=== PATIENT | female | born 1990 | race African-American/Black ===

== ENCOUNTER 2016-09-14 16:07 | Emergency (ER) | payer OTHER ==
[~2016-09-14] VITALS: Ht 165.1 cm; Wt 56.7 kg
[~2016-09-14 16:07] MED LIST: ALBUTEROL SULF8.5 GM INH; FLAGYL500 MG ORAL; IBUPROFEN600 MG ORAL; KEFLEX500 MG ORAL; METRONIDAZOLE250 MG ORAL; METRONIDAZOLE500 MG ORAL; NAPROSYN500 M1 ORAL; NKM; NORCO 5-325 TA1 EACH ORAL; PHENAZOPYRIDIN200 MG ORAL; PROMETHAZINE-D118 ML ORAL; VIBRAMYCIN100 MG ORAL; ZOFRAN ODT4 MG ORAL; ZOFRAN4 MG ORAL
[2016-09-14 16:32] VITALS: BP 120/62
[2016-09-14 18:13] LABS: APPEARANCE,URINE CLEAR; KETONES,URINE NEGATIVE (NEGATIVE); LEUKOCYTE ESTERASE ,URINE NEGATIVE (NEGATIVE); NITRITE,URINE NEGATIVE (NEGATIVE); PH,URINE 7 (4.5-8.0); PROTEIN,URINE NEGATIVE (NEGATIVE); UROBILINOGEN,URINE NORMAL MG/DL (0.0-1.0)
--- NOTE | 2016-09-14 18:40 | Emergency Room Report ---
History of Present Illness General Chief Complaint: Abdominal Pain Source: Patient Present Illness HPI 26-year-old female presents to the emergency department complaining of sharp lower abdominal midline pain described as cramping in nature 03/19 in severity onset was during menstrual cycle. Patient states the pain continues although her cycle stopped yesterday. Patient denies fevers chills constipation diarrhea or vomiting patient reports nausea. Patient denies abnormal vaginal discharge or history of STDs. Patient denies dysuria, hematuria or frequency. She does report unprotected intercourse and is worried she may be , due to nausea. Patient denies abdominal tenderness. Denies CP, Palpitations, LOC, AMS, dizziness, Changes in Vision, Sensation, paresthesias, or a sudden severe headache. Allergies: Coded Allergies: No Known Allergies (Unverified , 11/10/15) Patient History Past Medical History: see triage record Past Surgical History: none Pertinent Family History: none Last Menstrual Period: 09/09/16 Now: No Immunizations: UTD Reviewed Nursing Documentation: PMH: Agreed, PSxH: Agreed Nursing Documentation-PMH Hx Asthma: Yes Review of Systems All Other Systems: negative except mentioned in HPI Physical Exam Vital Signs Date Time Temp Pulse Resp B/P Pulse Ox O2 Delivery O2 Flow Rate FiO2 09/14/16 16:24 98.1 82 15 112/68 98 Room Air Sp02 EP Interpretation: reviewed, normal General Appearance: no apparent distress, alert, GCS 15, non-toxic Head: normocephalic, atraumatic Eyes: bilateral eye PERRL, bilateral eye normal inspection ENT: hearing grossly normal, normal pharynx, no angioedema, normal voice Neck: full range of motion, supple/symm/no masses Respiratory: chest non-tender, lungs clear, normal breath sounds, speaking full sentences Cardiovascular #1: regular rate, rhythm, no edema Gastrointestinal: normal bowel sounds, non tender, soft, no mass, no organomegaly, no bruit, non-distended, no guarding, no hernia, no pulsatile mass , no rebound, other - Mild tenderness palpated in the low abdomen location over lower uterus. Negative Lockwood signs, Negative MacBurney's sign, Negative Rosvigns Sign, Negative Psoas, No Peritoneal signs. Rectal: deferred Genitourinary: normal inspection, no CVA tenderness, other - Mild midline uterine pain to palpation no adnexal pain. Musculoskeletal: back normal, gait/station normal, normal range of motion, non- tender, no calf tenderness Neurologic: alert, oriented x3, responsive, motor strength/tone normal, sensory intact, speech normal Psychiatric: judgement/insight normal, memory normal, mood/affect normal, no suicidal/homicidal ideation Skin: normal color, no rash, warm/dry, well hydrated Lymphatic: no adenopathy Medical Decision Making PA Attestation Dr. lo is my supervising Physician whom patient management has been discussed with. Diagnostic Impression: Primary Impression: Uterine cramping ER Course Pt. presents to the ED c/o of continued uterine cramps despite cycle ending yesterday. Ddx considered but are not limited to Diverticulitis, acute appy, diarrhea,UC, PUD, GE, pancreatitis, gallstone, ovarian torsion, ectopic , PID tubo-ovarian abscess, Vital signs: are WNL, pt. is afebrile H&PE are most consistent with ORDERS: -UA: WNL no evidence of infection -URINE HCG:Negative ED INTERVENTIONS: None required at this time -The patient to follow up with OUTPATIENT SCHEDULER if symptoms continue. Discussed symptoms that would indicate prompt return to the emergency department. She verbalizes her understanding and agreement with post treatment plan DISCHARGE: At this time pt. is stable for d/c to home. Will provide printed patient care instructions, and any necessary prescriptions. Care plan and follow up instructions have been discussed with the patient prior to discharge. Labs Test 09/14/16 17:33 Urine Color Pale yellow Urine Appearance Clear Urine pH 7 (4.5-8.0) Urine Specific [place] 1.010 (1.005-1.035) Urine Protein Negative (NEGATIVE) Urine Glucose (UA) Negative (NEGATIVE) Urine Ketones Negative (NEGATIVE) Urine Occult Blood Negative (NEGATIVE) Urine Nitrite Negative (NEGATIVE) Urine Bilirubin Negative (NEGATIVE) Urine Urobilinogen Normal MG/DL (0.0-1.0) Urine Leukocyte Esterase Negative (NEGATIVE) Urine HCG, Qualitative Negative Last Vital Signs Date Time Temp Pulse Resp B/P Pulse Ox O2 Delivery O2 Flow Rate FiO2 09/14/16 16:32 98.0 70 17 120/62 98 Room Air Disposition: HOME, SELF-CARE Condition: Stable Scripts Ibuprofen* (MOTRIN*) 600 Mg Tablet 600 MG ORAL THREE TIMES A DAY, #30 TAB 0 Refills Prov: Ligia Mathews 09/14/16 Patient Instructions: Muscle Cramps and Spasms, [id number] Additional Instructions: Take medications as directed. Follow up with PCP/ OBGYN in 3-5 days Return sooner to ED if new symptoms occur, or current symptoms become worse. Ligia Mathews Sep 14, 2016 18:40
[2016-09-14] MEDS ORDERED: IBUPROFEN600 MG ORAL (18:41)
[2016-09-14 18:52] VITALS: BP 124/68
[2016-11-22] MEDS ORDERED: IBUPROFEN600 MG ORAL (00:03)
== END 2016-09-14 18:52 | disposition home or self-care (01) ==
LOC: EMR 17:00
DX: R10.9 Unspecified abdominal pain (principal); N94.89 Other specified conditions associated with female genital organs and menstrual cycle
CPT/HCPCS: 81003; 81025; 99284

== ENCOUNTER 2016-09-25 19:34 | Emergency (ER) | payer OTHER ==
[~2016-09-25] VITALS: Ht 152.4 cm; Wt 54.4 kg
[2016-09-25] MEDS ORDERED: Azithromycin 250mg tab ORAL ONE (20:15)
[2016-09-25] MEDS ORDERED: Lidocaine 1% MPF 10mg/ml 5ml ONE (20:31)
[2016-09-25 20:34] LABS: APPEARANCE,URINE SLIGHTLY CLOUDY; KETONES,URINE 1+ (NEGATIVE); LEUKOCYTE ESTERASE ,URINE 1+ (NEGATIVE); NITRITE,URINE NEGATIVE (NEGATIVE); PH,URINE 5 (4.5-8.0); PROTEIN,URINE NEGATIVE (NEGATIVE); UROBILINOGEN,URINE NORMAL MG/DL (0.0-1.0)
[2016-09-25 20:42] LABS: RBC,URINE 0-2 /HPF (0 - 2)
[2016-09-25 20:43] LABS: BACTERIA,URINE FEW /HPF; SQUAMOUS EPITHELIAL CELL,UR MANY /LPF (NONE/OCC)
[2016-09-25 21:10] VITALS: BP 116/71
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
[2016-11-22] MEDS ORDERED: IBUPROFEN600 MG ORAL (00:03)
== END 2016-09-25 21:10 | disposition home or self-care (01) ==
LOC: EMR 20:20
DX: N34.2 Other urethritis (principal); J45.909 Unspecified asthma, uncomplicated
CPT/HCPCS: 81003; 81025; 96372; 99283; J0696; Q0144

== ENCOUNTER 2016-10-21 16:52 | Emergency (ER) | payer OTHER ==
[~2016-10-21] VITALS: Ht 152.4 cm; Wt 55.8 kg
[2016-10-21] MEDS ORDERED: ALBUTEROL2.5 MG/3 M INH (17:39)
[2016-10-21] MEDS ORDERED: Lidocaine 2% Visc 15ml soln ORAL ONE (18:00)
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
[2016-10-21] MEDS ORDERED: AMOXICILLIN500 MG ORAL (18:15)
[2016-10-21] MEDS ORDERED: IBUPROFEN600 MG ORAL (18:16)
[2016-10-21 18:32] VITALS: BP 99/64
[2016-11-22] MEDS ORDERED: IBUPROFEN600 MG ORAL (00:03)
== END 2016-10-21 18:34 | disposition home or self-care (01) ==
LOC: EMR 17:42
DX: S01.511A Laceration without foreign body of lip, initial encounter (principal); W51.XXXA Accidental striking against or bumped into by another person, initial encounter; Y93.41 Activity, dancing; Y92.89 Other specified places as the place of occurrence of the external cause; J45.909 Unspecified asthma, uncomplicated

== ENCOUNTER → 2016-11-21 | Emergency (ER) | payer OTHER ==
[~2016-11-21] VITALS: Ht 152.4 cm; Wt 56.7 kg
[~2016-11-21] MED LIST changes: +ALBUTEROL2.5 MG/3 M INH; +AMOXICILLIN500 MG ORAL
[2016-11-21 23:21] LABS: APPEARANCE,URINE CLEAR
[2016-11-21 23:22] LABS: KETONES,URINE NEGATIVE (NEGATIVE); LEUKOCYTE ESTERASE ,URINE 2+ (NEGATIVE); NITRITE,URINE NEGATIVE (NEGATIVE); PH,URINE 7 (4.5-8.0); PROTEIN,URINE NEGATIVE (NEGATIVE); UROBILINOGEN,URINE NORMAL MG/DL (0.0-1.0)
[2016-11-21 23:24] LABS: MEAN CORPUSCULAR HEMOGLOBIN 28.1 PG (27.0-31.0); MEAN CORPUSCULAR HGB CONC 33.8 G/DL (32.0-36.0); MEAN CORPUSCULAR VOLUME 83 FL (80-99); MEAN PLATELET VOLUME 7.1 FL (6.5-10.1); PLATELET COUNT 208 K/UL (150-450); RED BLOOD COUNT 4.46 M/UL (4.20-5.40); RED CELL DISTRIBUTION WIDTH 11.9 % (11.6-14.8); WHITE BLOOD COUNT 6.5 K/UL (4.8-10.8)
[2016-11-21 23:25] LABS: BASOPHILS % (AUTO) 1.6 % (0.0-2.0); EOSINOPHILS % (AUTO) 5.3 % (0.0-3.0); LYMPHOCYTES % (AUTO) 38.2 % (20.0-45.0); MONOCYTES % (AUTO) 8.6 % (1.0-10.0); NEUTROPHILS % (AUTO) 46.3 % (45.0-75.0)
[2016-11-21 23:40] VITALS: BP 115/80
[2016-11-21 23:43] LABS: ALANINE AMINOTRANSFERASE 11 U/L (3-33); ALBUMIN/GLOBULIN RATIO 1.1 (1.0-2.7); ANION GAP 15 (5-15); ASPARTATE AMINO TRANSFERASE 18 U/L (5-40); CALCIUM 9.1 mg/dL (8.6-10.2); CARBON DIOXIDE 23 mEQ/L (20-30); CHLORIDE 99 mEQ/L (98-107); CREATININE 0.8 mg/dL (0.5-0.9); GLOMERULAR FILTRATION RATE > 60 mL/min (>60); HEMOLYSIS 10; LIPASE 20 U/L (< 60); POTASSIUM 4.1 mEQ/L (3.4-4.9); SODIUM 137 mEQ/L (135-145); TOTAL PROTEIN 7.6 g/dL (6.6-8.7)
[2016-11-22 00:02] LABS: SQUAMOUS EPITHELIAL CELL,UR FEW /LPF (NONE/OCC)
[2016-11-22 00:10] VITALS: BP 120/83
--- NOTE | 2016-11-22 03:12 | Emergency Room Report ---
History of Present Illness General Chief Complaint: Abdominal Pain Source: Patient Present Illness HPI 26-year-old female presents ED complaining of abdominal pain x2 weeks. States she was seen at a clinic 2 weeks ago for the same presentation. Patient was told that she had a "infection" and was prescribed Flagyl. States that the discharge is persisting and she is having worsening abdominal pain. Pain is lower, 10 out of 10, sharp, nonradiating. No other aggravating relieving factors. Denies dysuria or hematuria. Denies fevers chills. Denies nausea or vomiting. Denies any other associated symptoms Allergies: Coded Allergies: No Known Allergies (Unverified , 11/10/15) Patient History Past Medical History: asthma Past Surgical History: none Pertinent Family History: none Social History: Denies: alcohol use, drug use, smoking Last Menstrual Period: 11/07/16 Now: No Immunizations: UTD Reviewed Nursing Documentation: PMH: Agreed, PSxH: Agreed Nursing Documentation-PMH Hx Asthma: Yes Review of Systems All Other Systems: negative except mentioned in HPI Physical Exam Vital Signs Date Time Temp Pulse Resp B/P Pulse Ox O2 Delivery O2 Flow Rate FiO2 11/21/16 22:34 98.2 81 15 113/73 98 Room Air Sp02 EP Interpretation: reviewed, normal General Appearance: no apparent distress, alert, GCS 15, non-toxic Head: normocephalic, atraumatic Eyes: bilateral eye PERRL, bilateral eye normal inspection ENT: hearing grossly normal, normal pharynx, no angioedema, normal voice Neck: full range of motion, supple/symm/no masses Respiratory: chest non-tender, lungs clear, normal breath sounds, speaking full sentences Cardiovascular #1: regular rate, rhythm, no edema Cardiovascular #2: 2+ carotid (R), 2+ carotid (L), 2+ radial (R), 2+ radial (L) , 2+ dorsalis pedis (R), 2+ dorsalis pedis (L) Gastrointestinal: normal bowel sounds, non tender, soft, non-distended, no guarding, no rebound Rectal: deferred Genitourinary: normal inspection, no CVA tenderness Musculoskeletal: back normal, gait/station normal, normal range of motion, non- tender Neurologic: alert, oriented x3, responsive, motor strength/tone normal, sensory intact, speech normal Psychiatric: judgement/insight normal, memory normal, mood/affect normal, no suicidal/homicidal ideation Reflexes: 3+ bicep (R), 3+ bicep (L), 3+ tricep (R), 3+ tricep (L), 3+ knee (R) , 3+ knee (L) Skin: normal color, no rash, warm/dry, well hydrated Lymphatic: no adenopathy Medical Decision Making Diagnostic Impression: Primary Impression: Ovarian cyst Qualified Codes: N83.202 - Unspecified ovarian cyst, left side ER Course Hospital Course 26-year-old F presents to ED with abdominal pain, vaginal discharge Differential diagnosis includes-ovarian cyst, torsion, TOA, pelvic inflammatory disease Clinical course Patient placed on stretcher. After initial history and physical I ordered labs , IV fluids, pelvic US Labs - no leukocytosis, electrolytes ok, LFTs normal, UA unremarkable Pelvic US - no discharge, ruptured left ovarian cysts noted I feel this is a highly complex case requiring extensive working including EKG/ Rhythm strip, Xray/CT/US, Blood/urine lab work, repeat exams while in ED, and administration of strong opiates/narcotics for pain control, admission to hospital or close patient follow up. Diagnosis - ovarian cysts Stable and discharged to home with Rx Motrin. Followup with PMD. Return to ED if symptoms recur or worsen Labs Test 11/21/16 22:56 11/21/16 23:01 Urine Color Yellow Urine Appearance Clear Urine pH 7 (4.5-8.0) Urine Specific [place] 1.005 (1.005-1.035) Urine Protein Negative (NEGATIVE) Urine Glucose (UA) Negative (NEGATIVE) Urine Ketones Negative (NEGATIVE) Urine Occult Blood 2+ (NEGATIVE) Urine Nitrite Negative (NEGATIVE) Urine Bilirubin Negative (NEGATIVE) Urine Urobilinogen Normal MG/DL (0.0-1.0) Urine Leukocyte Esterase 2+ (NEGATIVE) Urine RBC 2-4 /HPF (0 - 2) Urine WBC 5-10 /HPF (0 - 2) Urine Squamous Epithelial Cells Few /LPF (NONE/OCC) Urine Bacteria None /HPF (NONE) Urine HCG, Qualitative Negative White Blood Count 6.5 K/UL (4.8-10.8) Red Blood Count 4.46 M/UL (4.20-5.40) Hemoglobin 12.5 G/DL (12.0-16.0) Hematocrit 37.1 % (37.0-47.0) Mean Corpuscular Volume 83 FL (80-99) Mean Corpuscular Hemoglobin 28.1 PG (27.0-31.0) Mean Corpuscular Hemoglobin Concent 33.8 G/DL (32.0-36.0) Red Cell Distribution Width 11.9 % (11.6-14.8) Platelet Count 208 K/UL (150-450) Mean Platelet Volume 7.1 FL (6.5-10.1) Neutrophils (%) (Auto) 46.3 % (45.0-75.0) Lymphocytes (%) (Auto) 38.2 % (20.0-45.0) Monocytes (%) (Auto) 8.6 % (1.0-10.0) Eosinophils (%) (Auto) 5.3 % (0.0-3.0) Basophils (%) (Auto) 1.6 % (0.0-2.0) Sodium Level 137 mEQ/L (135-145) Potassium Level 4.1 mEQ/L (3.4-4.9) Chloride Level 99 mEQ/L (98-107) Carbon Dioxide Level 23 mEQ/L (20-30) Anion Gap 15 (5-15) Blood Urea Nitrogen 8 mg/dL (7-23) Creatinine 0.8 mg/dL (0.5-0.9) Estimat Glomerular Filtration Rate > 60 mL/min (>60) Glucose Level 100 mg/dL (74-106) Calcium Level 9.1 mg/dL (8.6-10.2) Total Bilirubin 0.2 mg/dL (0.0-1.2) Aspartate Amino Transf (AST/SGOT) 18 U/L (5-40) Alanine Aminotransferase (ALT/SGPT) 11 U/L (3-33) Alkaline Phosphatase 81 U/L (35-104) Total Protein 7.6 g/dL (6.6-8.7) Albumin 4.1 g/dL (3.5-5.2) Globulin 3.5 g/dL Albumin/Globulin Ratio 1.1 (1.0-2.7) Lipase 20 U/L (< 60) CT/MRI/US Diagnostic Results CT/MRI/US Diagnostic Results : Imaging Test Ordered: Pelvis US Impression ruptured L ovarian cyst Last Vital Signs Date Time Temp Pulse Resp B/P Pulse Ox O2 Delivery O2 Flow Rate FiO2 11/22/16 00:10 98.2 82 17 120/83 100 Room Air Status: improved Disposition: HOME, SELF-CARE Condition: Stable Scripts Ibuprofen* (MOTRIN*) 600 Mg Tablet 600 MG ORAL Q8H Y for For Pain, #30 TAB 0 Refills Prov: ARON SINGH M.D. 11/22/16 [facility] Departure Forms: Return to Work Return to Work Date: Nov 23, 2016 Work Restrictions: None Patient Instructions: Ovarian Cyst, [id number] ARON SINGH M.D. Nov 22, 2016 03:12
--- NOTE | 2016-11-22 12:01 | Diagnostic Imaging Report ---
Indication: Pelvic pain, negative urine test Technique: Transabdominal and transvaginal images Comparison: 04/04/2016 Findings: Uterus measures 7.9 cm length by 3.5 cm AP. Endometrium measures 8 mm thick. No myometrial abnormality. The right ovary measures 2 cm length. Left ovary measures 3.7 cm length. The left ovary demonstrates 2 hemorrhagic follicles, largest measuring 2.5 cm in diameter. No free cul-de-sac fluid. No adnexal mass Impression: 2 presumed hemorrhagic left ovarian cyst. No other significant abnormality.
== END | disposition home or self-care (01) ==
LOC: EMR 22:48
DX: N83.202 Unspecified ovarian cyst, left side (principal); J45.909 Unspecified asthma, uncomplicated
CPT/HCPCS: 36415; 76830; 76856; 80053; 81003; 81025; 83690; 85025; 99284

== ENCOUNTER 2017-04-17 14:33 | Emergency (ER) | payer OTHER ==
[~2017-04-17] VITALS: Ht 152.4 cm; Wt 56.7 kg
[2017-04-17 15:05] VITALS: BP 130/66
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
[2017-04-17] MEDS ORDERED: IBUPROFEN600 MG ORAL (15:11)
[2017-04-17] MEDS ORDERED: ROBAXIN500 MG PO (15:11)
[2017-04-17 15:14] VITALS: BP 130/66
== END 2017-04-17 15:20 | disposition home or self-care (01) ==
LOC: EMR 15:14
DX: M54.5 Low back pain (principal); V43.62XA Car passenger injured in collision with other type car in traffic accident, initial encounter; Y92.414 Local residential or business street as the place of occurrence of the external cause; J45.909 Unspecified asthma, uncomplicated
CPT/HCPCS: 99284

== ENCOUNTER → 2017-08-27 | Emergency (ER) | payer MEDICAID, OTHER ==
[~2017-08-27] VITALS: Ht 152.4 cm; Wt 54.4 kg
[~2017-08-27] MED LIST changes: +ALUM-MAG HYDRO360 ML PO; +CLINDAMYCIN HC300 MG ORAL; +NAPROXEN500 M1 ORAL; +ROBAXIN500 MG PO
[2017-08-27 12:10] VITALS: BP 117/55
[2017-08-27 13:04] LABS: APPEARANCE,URINE CLEAR; KETONES,URINE NEGATIVE (NEGATIVE); LEUKOCYTE ESTERASE ,URINE NEGATIVE (NEGATIVE); NITRITE,URINE NEGATIVE (NEGATIVE); PH,URINE 5 (4.5-8.0); PROTEIN,URINE NEGATIVE (NEGATIVE); UROBILINOGEN,URINE NORMAL MG/DL (0.0-1.0)
--- NOTE | 2017-08-27 13:17 | Emergency Room Report ---
History of Present Illness General Chief Complaint: Nausea, Vomiting, and Diarrhea Source: Patient, Medical Record Present Illness HPI 27 YO Female presents to the emergency department with nausea, vomiting x2 days with intermittent 5/10 in severity abdominal cramping in the upper epigastric area just prior to episodes of vomiting. Patient denies blood in the vomit or stool she denies dark tarry stools, constipation or diarrhea. 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 Patient denies fevers or chills. He denies . Denies urgency, frequency, dysuria or hematuria. Denies CP, Palpitations, LOC, AMS, dizziness, Changes in Vision, Sensation, paresthesias, or a sudden severe headache. Allergies: Coded Allergies: No Known Allergies (Unverified , 11/10/15) Patient History Past Medical History: see triage record Past Surgical History: none Pertinent Family History: none Last Menstrual Period: 08/02/17 Immunizations: UTD Reviewed Nursing Documentation: PMH: Agreed, PSxH: Agreed Nursing Documentation-PMH Past Medical History: No History, Except For Hx Asthma: Yes Review of Systems All Other Systems: negative except mentioned in HPI Physical Exam Vital Signs Date Time Temp Pulse Resp B/P (MAP) Pulse Ox O2 Delivery O2 Flow Rate FiO2 08/27/17 12:10 98.1 75 18 117/55 99 Room Air Sp02 EP Interpretation: reviewed, normal General Appearance: no apparent distress, alert, GCS 15, non-toxic Head: normocephalic, atraumatic Eyes: bilateral eye normal inspection, bilateral eye PERRL ENT: hearing grossly normal, normal voice Neck: full range of motion, supple/symm/no masses Respiratory: lungs clear, normal breath sounds, speaking full sentences Cardiovascular #1: regular rate, rhythm Gastrointestinal: normal bowel sounds, non tender, soft, no guarding, no rebound Rectal: deferred Genitourinary: normal inspection, no CVA tenderness Musculoskeletal: back normal, gait/station normal, normal range of motion Neurologic: alert, oriented x3, responsive, motor strength/tone normal, sensory intact, speech normal Skin: normal color, no rash, warm/dry, well hydrated Medical Decision Making PA Attestation Dr. lo is my supervising Physician whom patient management has been discussed with. Diagnostic Impression: Primary Impression: Nausea and vomiting Qualified Codes: R11.2 - Nausea with vomiting, unspecified ER Course 27 YO Female presents to the emergency department with nausea, vomiting x2 days with intermittent 5/10 in severity abdominal cramping in the upper epigastric area just prior to episodes of vomiting. Patient denies blood in the vomit or stool she denies dark tarry stools, constipation or diarrhea. 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 Patient denies fevers or chills. He denies . Denies urgency, frequency, dysuria or hematuria. Denies CP, Palpitations, LOC, AMS, dizziness, Changes in Vision, Sensation, paresthesias, or a sudden severe headache. Ddx considered but are not limited to GE, colitis, acute appy, SBO, Cyclical Vomiting secondary to THC, * Vital signs: pt. is afebrile, H&PE are most consistent with GE most likely viral in etiology, no evidence to suggest acute abdomen on physical exam. ORDERS: - UA: unremarkable -Urine Hcg: Negative ED INTERVENTIONS: -Zofran 4mg Pt. able to tolerate oral fluids. I do not suspect an emergent condition at this time. With current presentation, pt. is stable for close outpatient follow up and conservative treatment. D/w pt. to return promptly to ED with worsening or new symptoms.- Pt. (and or responsible libertarian) verbalizes' understanding and agreement with proposed treatment plan. DISCHARGE: At this time pt. is stable for d/c to home. Will provide printed patient care instructions, and any necessary prescriptions. Care plan and follow up instructions have been discussed with the patient prior to discharge. Labs Test 08/27/17 12:41 Urine Color Pale yellow Urine Appearance Clear Urine pH 5 (4.5-8.0) Urine Specific [place] 1.005 (1.005-1.035) Urine Protein Negative (NEGATIVE) Urine Glucose (UA) Negative (NEGATIVE) Urine Ketones Negative (NEGATIVE) Urine Occult Blood Negative (NEGATIVE) Urine Nitrite Negative (NEGATIVE) Urine Bilirubin Negative (NEGATIVE) Urine Urobilinogen Normal MG/DL (0.0-1.0) Urine Leukocyte Esterase Negative (NEGATIVE) Urine HCG, Qualitative Negative Last Vital Signs Date Time Temp Pulse Resp B/P (MAP) Pulse Ox O2 Delivery O2 Flow Rate FiO2 08/27/17 12:10 98.1 75 18 117/55 99 Room Air Disposition: HOME, SELF-CARE Condition: Stable Scripts Mag Hydrox/Al Hydrox/Simeth (ALUM-MAG HYDROXIDE-SIMETH LIQ) 360 Ml Oral.susp 20 ML PO TID, #360 ML Prov: Ligia Mathews 08/27/17 Ondansetron Odt* (ZOFRAN ODT*) 4 Mg Tab.rapdis 4 MG ORAL Q6H Y for Nausea & Vomiting, #20 TAB Prov: Ligia Mathews 08/27/17 Referrals: [facility],REFERR (PCP) Departure Forms: Return to Work Return to Work Date: Aug 30, 2017 Return to Full Activity: Aug 30, 2017 Patient Instructions: Nausea and Vomiting, Adult Additional Instructions: Take medications as directed. Follow up with a Primary Care Provider in 3-5 days, even if your symptoms have resolved. --Please review list of primary care clinics, if you do not already have a primary care provider Return sooner to ED if new symptoms occur, or current symptoms become worse. - Please note that this Emergency Department Report was dictated using [employer] courier technology software, occasionally this can lead to erroneous entry secondary to interpretation by the dictation equipment. Ligia Mathews Aug 27, 2017 13:17
[2017-08-27 13:35] VITALS: BP 117/55
== END | disposition home or self-care (01) ==
LOC: EMR 12:28
DX: R11.2 Nausea with vomiting, unspecified (principal); J45.909 Unspecified asthma, uncomplicated
CPT/HCPCS: 81003; 81025; 99283

== ENCOUNTER 2017-09-06 12:36 | Emergency (ER) | payer MEDICAID, OTHER ==
[~2017-09-06] VITALS: Ht 152.4 cm; Wt 56.7 kg
[~2017-09-06 12:36] MED LIST changes: -CLINDAMYCIN HC300 MG ORAL; -NAPROXEN500 M1 ORAL
[2017-09-06 14:06] LABS: APPEARANCE,URINE TURBID; BILIRUBIN, URINE NEGATIVE (NEGATIVE); COLOR,URINE YELLOW; GLUCOSE, URINE (UA) NEGATIVE (NEGATIVE); KETONES,URINE NEGATIVE (NEGATIVE); LEUKOCYTE ESTERASE ,URINE 2+ (NEGATIVE); NITRITE,URINE NEGATIVE (NEGATIVE); PH,URINE 5 (4.5-8.0); PROTEIN,URINE NEGATIVE (NEGATIVE); UROBILINOGEN,URINE NORMAL MG/DL (0.0-1.0)
--- NOTE | 2017-09-06 14:13 | Emergency Room Report ---
History of Present Illness General Chief Complaint: Abdominal Pain Present Illness HPI 27-year-old female presents to the emergency department complaining of lower abdominal cramping after recently having IUD placed one month ago. Patient states that she was diagnosed with bacterial vaginosis by her MUSSEL OPENER and was given both Flagyl pills and Flagyl cream and she states that she did not tolerate this medication as it worsened her irregular bleeding from Mirena IUD. Requesting alternative medication for to vaginosis she reports that she continues to have some discharge which is consistent in character to when she was first evaluated. Patient reported intermittent spotting and irregular. She states she has already been evaluated by her OBGYN for that. denies recent unprotected intercourse. Denies abdominal tenderness, nausea or vomiting. Patient denies fevers or chills. Denies rashes, swollen tender lymph nodes, joint pain or external vaginal lesions. Denies CP, Palpitations, LOC, AMS, dizziness, Changes in Vision, Sensation, paresthesias, or a sudden severe headache. Allergies: Coded Allergies: No Known Allergies (Unverified , 11/10/15) Patient History Past Medical History: see triage record Past Surgical History: none Pertinent Family History: none Now: No Reviewed Nursing Documentation: PMH: Agreed, PSxH: Agreed Nursing Documentation-PMH Hx Asthma: Yes Review of Systems All Other Systems: negative except mentioned in HPI Physical Exam Vital Signs Date Time Temp Pulse Resp B/P (MAP) Pulse Ox O2 Delivery O2 Flow Rate FiO2 09/06/17 12:56 97.9 75 20 105/72 99 Room Air Sp02 EP Interpretation: reviewed, normal General Appearance: no apparent distress, alert, GCS 15, non-toxic Head: normocephalic, atraumatic Eyes: bilateral eye normal inspection, bilateral eye PERRL ENT: hearing grossly normal, normal voice Neck: full range of motion Respiratory: lungs clear, normal breath sounds, speaking full sentences Cardiovascular #1: regular rate, rhythm Gastrointestinal: normal bowel sounds, non tender, soft Rectal: deferred Genitourinary: normal inspection, no CVA tenderness Musculoskeletal: back normal, gait/station normal, normal range of motion, non- tender Neurologic: alert, oriented x3, responsive, motor strength/tone normal, sensory intact, speech normal Skin: normal color, no rash, warm/dry, well hydrated Lymphatic: no adenopathy Medical Decision Making PA Attestation Dr. lo is my supervising Physician whom patient management has been discussed with. Diagnostic Impression: Primary Impression: Vaginal discharge ER Course 27-year-old female presents to the emergency department complaining of lower abdominal cramping after recently having IUD placed one month ago. Patient states that she was diagnosed with bacterial vaginosis by her MUSSEL OPENER and was given both Flagyl pills and Flagyl cream and she states that she did not tolerate this medication as it worsened her irregular bleeding from Mirena IUD. Requesting alternative medication for to vaginosis she reports that she continues to have some discharge which is consistent in character to when she was first evaluated. Patient reported intermittent spotting and irregular. She states she has already been evaluated by her OBGYN for that. denies recent unprotected intercourse. Denies abdominal tenderness, nausea or vomiting. Patient denies fevers or chills. Denies rashes, swollen tender lymph nodes, joint pain or external vaginal lesions. Denies CP, Palpitations, LOC, AMS, dizziness, Changes in Vision, Sensation, paresthesias, or a sudden severe headache. Ddx considered but are not limited to UTi , Pyelo, STI, Stone, Cystitis, vaginal laceration, bacterial vaginosis, PID, vaginitis. Vital signs: are WNL, pt. is afebrile H& PE are most consistent with: BV and non-compliance with treatment regimen. ORDERS: - UA labs are attached : Most indicative of contamination: presence of equal amounts of bacteria and squamous cells, no elevation in inflammatory markers, nitrite negative. -Urine Hcg: negative ED INTERVENTIONS: None required at this time. DISCHARGE: At this time pt. is stable for d/c to home. Will provide printed patient care instructions, and any necessary prescriptions. Care plan and follow up instructions have been discussed with the patient prior to discharge. Labs Test 09/06/17 13:00 Urine Color Yellow Urine Appearance Turbid Urine pH 5 (4.5-8.0) Urine Specific [place] 1.020 (1.005-1.035) Urine Protein Negative (NEGATIVE) Urine Glucose (UA) Negative (NEGATIVE) Urine Ketones Negative (NEGATIVE) Urine Occult Blood 1+ (NEGATIVE) Urine Nitrite Negative (NEGATIVE) Urine Bilirubin Negative (NEGATIVE) Urine Urobilinogen Normal MG/DL (0.0-1.0) Urine Leukocyte Esterase 2+ (NEGATIVE) Urine HCG, Qualitative Negative Last Vital Signs Date Time Temp Pulse Resp B/P (MAP) Pulse Ox O2 Delivery O2 Flow Rate FiO2 09/06/17 12:56 97.9 75 20 105/72 99 Room Air Disposition: HOME, SELF-CARE Condition: Stable Scripts Naproxen* (NAPROXEN*) 500 Mg Tablet.dr 500 MG ORAL TWICE A DAY for 7 Days, #14 TAB Prov: Ligia Mathews 09/06/17 Doxycycline Hyclate* (VIBRAMYCIN*) 100 Mg Capsule 100 MG ORAL EVERY 12 HOURS for 7 Days, #14 CAP 0 Refills Prov: Ligia Mathews 09/06/17 Clindamycin Hcl (CLINDAMYCIN HCL) 300 Mg Capsule 300 MG ORAL BID for 7 Days, #14 CAP Prov: Ligia Mathews 09/06/17 Departure Forms: Return to Work Return to Work Date: Sep 09, 2017 Work Restrictions: None Return to Full Activity: Sep 09, 2017 Patient Instructions: Abnormal Uterine Bleeding Additional Instructions: Take medications as directed. Follow up with a OBGYN within 3-5 days, even if your symptoms have resolved. Return sooner to ED if new symptoms occur, or current symptoms become worse. - Please note that this Emergency Department Report was dictated using [email or web address] brush artist technology software, occasionally this can lead to erroneous entry secondary to interpretation by the dictation equipment. Ligia Mathews Sep 06, 2017 14:13
[2017-09-06] MEDS ORDERED: Lidocaine 1% MPF 10mg/ml 5ml INJ ONE (14:15)
[2017-09-06] MEDS ORDERED: VIBRAMYCIN100 MG ORAL (14:16)
[2017-09-06] MEDS ORDERED: CLINDAMYCIN HC300 MG ORAL (14:16)
[2017-09-06 14:45] VITALS: BP 107/69
[2017-09-06] MEDS ORDERED: NAPROXEN500 M1 ORAL (14:49)
[2017-09-06 14:50] VITALS: BP 107/69
== END 2017-09-06 14:50 | disposition home or self-care (01) ==
LOC: EMR 13:26
DX: N89.8 Other specified noninflammatory disorders of vagina (principal); J45.909 Unspecified asthma, uncomplicated
CPT/HCPCS: 81003; 81025; 87086; 96372; 99284; J0696

== ENCOUNTER 2019-12-21 08:47 | Emergency (ER) | payer MEDICAID, OTHER ==
[~2019-12-21] VITALS: Ht 152.4 cm; Wt 56.7 kg
[~2019-12-21 08:47] MED LIST changes: +CLINDAMYCIN HC300 MG ORAL; +NAPROXEN500 M1 ORAL; +ZOFRAN ODT8 MG ORAL
[2019-12-21 09:21] VITALS: BP 102/65
--- NOTE | 2019-12-21 09:29 | NUR ---
ED Nurse Note: Patient walked into ED from home c/o tooth infection, possible abscess inside her mouth for 1 day. reports pain,8/10. patient breathing unlabored and even, speaking in full sentences.
[2019-12-21] MEDS ORDERED: IBUPROFEN600 M1 ORAL (09:34)
[2019-12-21] MEDS ORDERED: VENTOLIN HFA18 GM INH (09:34)
[2019-12-21] MEDS ORDERED: PENICILLIN V P500 MG ORAL (09:34)
--- NOTE | 2019-12-21 09:38 | Emergency Room Report ---
History of Present Illness General Chief Complaint: Skin Rash/Abscess Source: Patient Present Illness HPI Patient is a 29-year-old female presents after increased right-sided facial pain. Patient reports having increased swelling to the right side of her jaw. Gradual onset of symptoms. Previous history of broken tooth that side. Previously been scheduled for oral surgery however apparently had not been able to see oral surgeon. Denies any fever. Had not been having any difficulty opening her mouth. Reports having increased pain to the right side of the jaw Allergies: Coded Allergies: No Known Allergies (Unverified , 11/10/15) COVID-19 Screening Contact w/high risk pt: No Recent Travel to affected area: No Experienced COVID-19 symptoms?: No Patient History Past Medical History: see triage record Now: No Reviewed Nursing Documentation: PMH: Agreed; PSxH: Agreed Nursing Documentation-PMH Past Medical History: No History, Except For Hx Asthma: Yes Review of Systems All Other Systems: negative except mentioned in HPI Physical Exam Vital Signs Date Time Temp Pulse Resp B/P (MAP) Pulse Ox O2 Delivery O2 Flow Rate FiO2 12/21/19 09:21 98.4 70 17 102/65 98 Room Air General Appearance: well appearing, no apparent distress, alert, GCS 15 Head: normocephalic, atraumatic ENT: hearing grossly normal, normal voice, other - Right-sided cracked premolar , no fluctuance, slight right-sided facial swelling. Neck: full range of motion, supple Respiratory: no respiratory distress, speaking full sentences Musculoskeletal: no calf tenderness Neurologic: normal gait Psychiatric: mood/affect normal Skin: no rash Medical Decision Making Diagnostic Impression: Primary Impression: Dental infection ER Course Patient presented for dental infection. Differential diagnosis include was not limited to cellulitis, abscess, Sinan's angina among others. Patient appears to have a soft submandibular space. No evidence of airway compromise. Patient was to be stable for outpatient follow-up with oral surgery. She was given prescription for penicillin as well as for pain. Patient requested refill of her albuterol was also given refill of albuterol. The patient is advised to follow up with oral surgeon in 1-2 days. Patient is advised to return if any worsening condition or if any changes in status that are concerning. This report is dictated with [employer] bottom sprayer software which may occasionally lead to discrepancies related to use of this software. Last Vital Signs Date Time Temp Pulse Resp B/P (MAP) Pulse Ox O2 Delivery O2 Flow Rate FiO2 12/21/19 09:21 98.4 70 17 102/65 (77) 98 Room Air Status: improved Disposition: HOME, SELF-CARE Condition: Stable Scripts Ibuprofen* (MOTRIN*) 600 Mg Tablet 600 MG ORAL Q8H PRN for FOR PAIN, #30 TAB 0 Refills Prov: Rory Baez MD 12/21/19 Penicillin V Potassium* (PENVK*) 500 Mg Tablet 500 MG ORAL TWICE A DAY, #14 TAB Prov: Rory Baez MD 12/21/19 Albuterol Sulfate (VENTOLIN HFA) 18 Gm Hfa.aer.ad 2 PUFFS INH EVERY 6 HOURS, #18 GM 0 Refills Prov: Rory Baez MD 12/21/19 Referrals: NOT CHOSEN IPA/,REFERRING (PCP) Patient Instructions: Dental Abscess Additional Instructions: Follow up with oral surgeon for recheck. Return if unable to open mouth, high fever or other concerns. Rory Baez MD Dec 21, 2019 09:38
--- NOTE | 2019-12-21 09:38 | NUR ---
ED Nurse Note: Dr PRABHAKAR ok for the patient not to take penicllin here. RN explained medications prescribed for the patient, patient verbalized understanding.
--- NOTE | 2019-12-21 09:40 | NUR ---
ER DISCHARGE NOTE: Patient is cleared to be discharged per ERMD DR PRABHAKAR, pt is aox4, on room air, with stable vital signs. pt was given dc and prescription instructions, pt was able to verbalize understanding, pt id band removed without complications. pt is able to ambulate with steady gait. pt took all belongings.
[2019-12-21] MEDS ORDERED: Penicillin Vk 250mg tab ORAL ONE (09:45)
[2019-12-21 09:53] VITALS: BP 102/65
== END 2019-12-21 09:50 | disposition home or self-care (01) ==
LOC: EMR 09:25
DX: K04.7 Periapical abscess without sinus (principal)
CPT/HCPCS: 99282; C9399

== ENCOUNTER 2020-03-04 10:13 | Emergency (ER) | payer MEDICAID ==
[~2020-03-04] VITALS: Ht 154.9 cm; Wt 56.7 kg
[~2020-03-04 10:13] MED LIST changes: +IBUPROFEN600 M1 ORAL; +PENICILLIN V P500 MG ORAL; +VENTOLIN HFA18 GM INH
[2020-03-04 10:24] VITALS: BP 108/68
[2020-03-04] MEDS ORDERED: DiphenhydrAMINE 25mg Tab ORAL ONE (10:30)
[2020-03-04] MEDS ORDERED: TYLENOL325 MG ORAL (10:32)
[2020-03-04] MEDS ORDERED: IBUPROFEN600 M1 ORAL (10:32)
[2020-03-04] MEDS ORDERED: BENADRYL25 MG ORAL (10:32)
--- NOTE | 2020-03-04 10:33 | Emergency Room Report ---
History of Present Illness General Chief Complaint: Allergic Reaction Source: Patient Present Illness HPI 30-year-old female history of asthma presents with hive-like lesions on her legs and arms that occurred 5 days ago she endorses them as itchy no aggravating factors alleviated with Benadryl severity is mild, constant patient presents for evaluation and treatment no chest pain or shortness of breath no nausea no vomiting no abdominal pain no shortness of breath Allergies: Coded Allergies: No Known Allergies (Unverified , 11/10/15) COVID-19 Screening Contact w/high risk pt: No Recent Travel to affected area: No Experienced COVID-19 symptoms?: No COVID-19 Testing performed BACKUP OPERATOR: No Patient History Past Medical History: see triage record Last Menstrual Period: 2 days ago Now: No : 2 Para: 0 Reviewed Nursing Documentation: PMH: Agreed; PSxH: Agreed Nursing Documentation-PMH Past Medical History: No History, Except For Hx Asthma: Yes Review of Systems All Other Systems: negative except mentioned in HPI Physical Exam Vital Signs Date Time Temp Pulse Resp B/P (MAP) Pulse Ox O2 Delivery O2 Flow Rate FiO2 03/04/20 10:17 99.5 100 18 103/65 (78) 97 Room Air Sp02 EP Interpretation: reviewed, normal General Appearance: well appearing, no apparent distress, alert Head: normocephalic, atraumatic Eyes: bilateral eye PERRL, bilateral eye EOMI ENT: uvula midline, moist mucus membranes Neck: supple, thyroid normal, supple/symm/no masses Respiratory: lungs clear, no respiratory distress, no retraction, no accessory muscle use Cardiovascular #1: normal peripheral pulses, regular rate, rhythm, no edema, no gallop, no murmur Gastrointestinal: non tender, soft, no guarding, no rebound Musculoskeletal: normal inspection Neurologic: alert, oriented x3 Psychiatric: mood/affect normal Skin: warm/dry, other - Urticarial lesions arms, legs Medical Decision Making Diagnostic Impression: Primary Impression: Allergic reaction Qualified Codes: T78.40XA - Allergy, unspecified, initial encounter ER Course 30-year-old female presents with most likely hives, patient given Decadron, Benadryl. Patient given expectant management instructions. Patient given Benadryl as an outpatient. Strict return precautions follow-up with PCP no evidence of airway compromise Last Vital Signs Date Time Temp Pulse Resp B/P (MAP) Pulse Ox O2 Delivery O2 Flow Rate FiO2 03/04/20 10:17 99.5 100 18 103/65 (78) 97 Room Air Disposition: HOME, SELF-CARE Condition: Stable Scripts Diphenhydramine Hcl* (BENADRYL*) 25 Mg Capsule 25 MG ORAL Q6H PRN for Itching, #30 CAP Prov: Jose Trejo MD 03/04/20 Acetaminophen (Tylenol) 325 Mg Tablet 650 MG ORAL Q6H PRN for Prn Pain/Headache/Temp > 101, #30 TAB 0 Refills Prov: Jose Trejo MD 03/04/20 Ibuprofen* (MOTRIN*) 600 Mg Tablet 600 MG ORAL Q8H PRN for FOR PAIN, #30 TAB 0 Refills Prov: Jose Trejo MD 03/04/20 Referrals: [facility] Patient Instructions: Marissa, [id number] Additional Instructions: The patient was provided with discharge instructions, notified to follow-up with a primary care doctor and or specialist in the next 24-48 hours, and to return to the ED if they have worsening of their symptoms. Please note that this report is being documented using [employer] technology. This can lead to erroneous entry secondary to incorrect interpretation by the dictating instrument. Jose Trejo MD Mar 04, 2020 10:33
[2020-03-04 10:43] VITALS: BP 103/65
== END 2020-03-04 10:43 | disposition home or self-care (01) ==
LOC: EMR 10:32
DX: T78.40XA Allergy, unspecified, initial encounter (principal); X58.XXXA Exposure to other specified factors, initial encounter; J45.909 Unspecified asthma, uncomplicated
CPT/HCPCS: 81025; J8540; Z7502; 99282